=== PATIENT | male | born 1965 | race Caucasian/White ===

== ENCOUNTER → 2017-01-09 | Outpatient (CLI) | payer OTHER ==
[~2017-01-09] MED LIST: ACET-1600 PO; ALBU18HF INH; HYDR-3307 PO; LISI-167 PO
[2017-01-09 15:27] LABS: ASPARTATE AMINO TRANSFERASE 14 U/L (15-37); BLOOD UREA NITROGEN 17 mg/dL (7-18)
== END | disposition home or self-care (01) ==
LOC: STAR 14:13
PROVIDERS: ATTEND Orthopaedic Surgery
DX: M25.672 Stiffness of left ankle, not elsewhere classified (principal)
CPT/HCPCS: 36415; 80053

== ENCOUNTER 2017-01-18 08:37 | Day surgery (SDC) | payer OTHER ==
[~2017-01-18] VITALS: Ht 182.9 cm; Wt 73.0 kg
[~2017-01-18 08:37] MED LIST changes: +ONDANSETRON 2MG/ML, 2ML ONE
[2017-01-18] MEDS ORDERED: LACTATED RINGERS 1,000 ML IV SCH (08:57)
[2017-01-18 08:58] VITALS: BP 138/87
[2017-01-18] MEDS ORDERED: LIDOCAINE 1%, 2ML SQ PRN (09:00)
[2017-01-18] MEDS ORDERED: AMOX1TAB64 PO (09:45)
[2017-01-18] MEDS ORDERED: ROPIvacaine/PF 0.5%, 30 ML ONE (10:36)
[2017-01-18] MEDS ORDERED: PROPOFOL 10 MG/ML, 20ML ONE (10:46)
[2017-01-18] MEDS ORDERED: EPHEDRINE 50 MG/ML, 1ML ONE (10:46)
[2017-01-18] MEDS ORDERED: DEXAMETHASONE 4 MG/ML, 1ML ONE (10:46)
[2017-01-18] MEDS ORDERED: CEFAZOLIN 1,000 MG ONE (10:46)
[2017-01-18] MEDS ORDERED: ONDANSETRON 2MG/ML, 2ML ONE (10:46)
[2017-01-18] MEDS ORDERED: MEPERIDINE/PF 25MG/0.5ML IVPush PRN (11:30)
[2017-01-18] MEDS ORDERED: ACETAMINOPHEN 325 MG TABLET PO PRN (11:30)
[2017-01-18] MEDS ORDERED: FENTANYL PF 100 MCG/2ML IV PRN (11:30)
[2017-01-18] MEDS ORDERED: KETOROLAC 30 MG/1 ML IV PRN (11:30)
[2017-01-18] MEDS ORDERED: PROMETHAZINE 25 MG/ML, 1ML IV PRN (11:30)
[2017-01-18] MEDS ORDERED: HYDROmorphone 1 MG/ML, 1ML IV PRN (11:30)
[2017-01-18] MEDS ORDERED: OXYcodone 5 MG/5 ML ORAL.SOL UDC PO PRN (11:30)
[2017-01-18] MEDS ORDERED: ACETAMINOPHEN 650 MG/20.3 ML UDC ONE (12:07)
[2017-01-18] MEDS ORDERED: OXYcodone 5 MG/5 ML ORAL.SOL UDC ONE (12:08)
== END 2017-01-18 13:25 ==
LOC: OUT 08:37
PROVIDERS: ATTEND Orthopaedic Surgery
DX: M24.672 Ankylosis, left ankle (principal); M21.6X2 Other acquired deformities of left foot; I10 Essential (primary) hypertension; J45.909 Unspecified asthma, uncomplicated; Z87.39 Personal history of other diseases of the musculoskeletal system and connective tissue; Z88.1 Allergy status to other antibiotic agents; Z72.89 Other problems related to lifestyle; Z88.8 Allergy status to other drugs, medicaments and biological substances
CPT/HCPCS: 29891; 29898; J0690; J1100; J2405; J2704; J2795; J7120; J2250; J3010

== ENCOUNTER → 2018-11-04 | Outpatient (CLI) | payer OTHER ==
[~2018-11-04] MED LIST changes: +AMOX1TAB64 PO; -ONDANSETRON 2MG/ML, 2ML ONE
== END | disposition home or self-care (01) ==
LOC: CFH 10:02
PROVIDERS: ATTEND Orthopaedic Surgery Orthopaedic Surgery of the Spine
DX: M48.061 Spinal stenosis, lumbar region without neurogenic claudication (principal); M51.36 Other intervertebral disc degeneration, lumbar region; M47.816 Spondylosis without myelopathy or radiculopathy, lumbar region; M48.02 Spinal stenosis, cervical region; M50.222 Other cervical disc displacement at C5-C6 level; M47.812 Spondylosis without myelopathy or radiculopathy, cervical region
CPT/HCPCS: 72141; 72148